=== PATIENT | male | born 1975 | race Two or more races ===

== ENCOUNTER 2019-02-10 18:42 | Emergency (ER) | payer OTHER ==
[~2019-02-10] VITALS: Ht 165.1 cm; Wt 104.3 kg
[~2019-02-10 18:42] MED LIST: BACTROBAN OINT22 GM TP; DORYX100 MG PO; SEPTRA DS TABLE1 TAB PO
[2019-02-10] MEDS ORDERED: AVAPRO300 MG (19:24)
[2019-02-10] MEDS ORDERED: SOLIQUA 100 UNIT3 ML (19:24)
[2019-02-10] MEDS ORDERED: HYDROCHLOROTHIA25 MG (19:25)
[2019-02-10] MEDS ORDERED: NORVASC5 MG (19:25)
== END 2019-02-10 20:04 | disposition home or self-care (01) ==
LOC: ER 18:42
DX: L02.413 Cutaneous abscess of right upper limb (principal)

== ENCOUNTER 2019-11-23 07:53 | Emergency (ER) | payer OTHER ==
[~2019-11-23] VITALS: Ht 165.1 cm; Wt 108.9 kg
[~2019-11-23 07:53] MED LIST changes: +AVAPRO300 MG; +HYDROCHLOROTHIA25 MG; +NORVASC5 MG; +SOLIQUA 100 UNIT3 ML
[2019-11-23] MEDS ORDERED: [UNRECOGNIZED DRUG - OTHER] PO (08:08)
[2019-11-23] MEDS ORDERED: KETO10TA2 PO (10:22)
[2019-11-23] MEDS ORDERED: LEVAQUIN750 MG PO (10:22)
== END 2019-11-23 10:37 | disposition home or self-care (01) ==
LOC: ER 07:53
DX: R60.0 Localized edema (principal); S90.851S Superficial foreign body, right foot, sequela; X58.XXXS Exposure to other specified factors, sequela

== ENCOUNTER 2021-02-06 08:46 | Emergency (ER) | payer OTHER ==
[~2021-02-06] VITALS: Ht 165.1 cm; Wt 111.1 kg
[~2021-02-06 08:46] MED LIST changes: +KETO10TA2 PO; +LEVAQUIN750 MG PO; +[UNRECOGNIZED DRUG - OTHER] PO
[2021-02-06] MEDS ORDERED: LANTUS SOL100 UNIT/1 SQ (09:11)
[2021-02-06] MEDS ORDERED: MUPIROCIN1 G1 TOP (16:09)
[2021-02-06] MEDS ORDERED: MORGIDOX100 MG PO (16:09)
== END 2021-02-06 16:20 | disposition home or self-care (01) ==
LOC: ER 08:46
DX: L03.116 Cellulitis of left lower limb (principal); T25.02 Burn of unspecified degree of foot; X08.8XXS Exposure to other specified smoke, fire and flames, sequela